=== PATIENT | female | born 1965 | race Caucasian/White ===

== ENCOUNTER 2018-10-29 11:08 | Observation (INO) ==
[2018-10-29] MEDS ORDERED: Metoprolol Tartrate 25 MG Tablet PO ONE (12:15)
[2018-10-29] MEDS ORDERED: Chlorhexidine Gluconate 2% 1 Pack (2 Cloths) TOPICAL ONE (12:15)
[2018-10-29] MEDS ORDERED: Sodium Chlor 0.9% Inj 500 ML IV.CONT ONE (12:15)
[2018-10-29] MEDS ORDERED: Bupivacaine/Epinephrine PF Inj 0.5% 10 ML Vial ONE (13:25)
[2018-10-29] MEDS ORDERED: Post-op Orders (for Pharmacy) OTHER ONE (15:59)
[2018-10-29] MEDS ORDERED: Bisacodyl 10 MG Supp RECTAL PRN (15:59)
[2018-10-29] MEDS ORDERED: Promethazine 25 MG Supp RECTAL PRN (15:59)
[2018-10-29] MEDS ORDERED: Ibuprofen 600 MG Tablet PO PRN (15:59)
[2018-10-29] MEDS ORDERED: fentaNYL Citrate Inj 100 MCG/2 ML Ampul ONE (16:16)
[2018-10-29] MEDS ORDERED: *morphine SULFATE 4 MG/ML PERIprocedure ONLY ONE ×3 (16:35→16:59)
--- NOTE | 2018-10-29 17:26 | MP ---
cc: Deven Guadalupe MD, Savitha MD DATE OF OPERATION: 10/29/2018 PREOPERATIVE DIAGNOSIS: Large thyroid goiter, right side. POSTOPERATIVE DIAGNOSIS: Large thyroid goiter, right side, pending permanent section. PROCEDURE PERFORMED: Total thyroidectomy with neuromonitoring. ANESTHESIA: General. SURGEON: Deven Guadalupe MD WHEEL BORER: Arlyn Feliciano, Advanced Registered Nurse Practitioner. Tg Feliciano LEARNING SOLUTIONS SPECIALIST/Information Manager LEARNING SOLUTIONS SPECIALIST The LEARNING SOLUTIONS SPECIALIST/Information Manager was present from beginning to the end of the case assisting in all portions of the procedure. It was necessary to have this individual in the room to assist in the above surgical procedure. The surgical procedure was assisted by the LEARNING SOLUTIONS SPECIALIST/Information Manager. The LEARNING SOLUTIONS SPECIALIST/Information Manager presence was necessary throughout the case for appropriate retraction, dissection, visualization, and resection of the important anatomical structures during the surgical procedure. The LEARNING SOLUTIONS SPECIALIST/Information Manager was assisting throughout the entirety of the operation. The skill set of the LEARNING SOLUTIONS SPECIALIST/Information Manager is medically and surgically necessary to safely complete the surgical procedure. During the surgical case the operating room surgical scrub technician was working instrument table and passing instruments to the attending surgeon and LEARNING SOLUTIONS SPECIALIST/ Information Manager. The LEARNING SOLUTIONS SPECIALIST/Information Manager was directly assisting the operating surgeon and involved in the technical aspects of the surgical case. INDICATIONS: This is a pleasant female who has a rather significant size enlarged right side of her thyroid gland. It is causing compressive symptoms and some voice changes. I believe it is compressing the trachea the esophagus and the right recurrent laryngeal nerve. Because of the size of the mass, plans were made for excision. PROCEDURE: The patient was taken to the operating room and placed in the supine position. After anesthesia, a timeout was done. The patient was prepped and draped with Betadine. I made a curvilinear incision about 8 cm, 2 cm above the sternal notch in a normal crease of the neck. Dissected the platysma muscle with electrocautery device and created a flap superiorly and inferiorly. The strap muscles are then identified. A [place] retractor was then placed. The strap muscles were retracted laterally on either side. First, we directed our attention to the left gland, which is somewhat atrophied and scarred in. We were able to get the middle thyroidal vessel down with Harmonic scalpel. The inferior thyroidal vessel and the superior thyroidal vessels are sealed with the Harmonic scalpel. A parathyroid gland is identified. It looks like a left inferior and this is preserved. Again, this gland is somewhat shrunken and atrophied and firm. Once we were able to isolate the vascular supply were able to elevate the gland up off the trachea, again visualizing the recurrent laryngeal nerve and confirming with a good waveform on the neuro monitor. The tissue was then carefully teased off the trachea up to the isthmus. The pyramidal lobe was removed as well. We then directed our attention to the right side. The gland is somewhat scarred in and adherent to the strap muscles and this must be teased away with blunt dissection and using the Harmonic scalpel. Some of the minor muscle fibers were attached to the thyroid vessel. She does have some dilated veins on the thyroid, which bleed. We were able to get the middle thyroidal vessel down with Harmonic scalpel and the inferior thyroidal vessel with the Harmonic scalpel. The superior part of the gland is very enlarged and extending up under the submandibular area. Using careful dissection of mostly blunt dissection, we were able to tease away the areolar tissue that is adherent to the thyroid. We were able to then visualize the right superior thyroidal vessels and these are ligated with the Harmonic scalpel. The gland was then teased away from the underlying tissues and elevated to the midline. We were then able to identify the recurrent laryngeal nerve on the right side with a good waveform by visualization and by the electrode neuromonitoring device. At this time, we were able to carefully teased this off the trachea. A specimen was labeled with a suture on the right gland. I believe I see the right inferior parathyroid gland on the right side. The area on both sides is then irrigated copiously. Some of the flimsy tissue that was adherent to the thyroid was oozing a little bit. This was stopped with pressure electrocautery device, but because of the amount of dissection carried out, I did place some Alan into the area of the thyroidal space. This confirmed hemostasis. Again, we reidentified the right and left recurrent laryngeal nerves with good waveform distally from the dissection as well. We then closed the midline with 2-0 Vicryl, the strap muscles. The platysma muscle was closed with 3-0 Vicryl and skin was closed with 4-0 Monocryl. Steri-Strips applied, sterile bandage was applied. The patient tolerated the procedure well with no immediate postop complication. extubated looks good fairly normal voice Deven Guadalupe MD [email or web address]/[email or web address] , 04:18 PM , 04:30 PM WILLIAM
[2018-10-29] MEDS: oxyCODONE/Acetaminophen 10/325 Tablet PO PRN ×2 (18:02→22:07)
[2018-10-29] MEDS: Senna/Docusate Sodium 8.6/50 MG Tablet PO SCH (20:42)
[2018-10-29] MEDS ORDERED: Temazepam 15 MG Capsule PO PRN (21:00)
[2018-10-30] MEDS ORDERED: Levothyroxine 50 MCG Tablet PO SCH (06:00)
[2018-10-30 08:41] VITALS: RESP 20
[2018-10-30] MEDS ORDERED: Pantoprazole Sodium 20 MG DR Tablet PO SCH (09:00)
[2018-10-30] MEDS: Senna/Docusate Sodium 8.6/50 MG Tablet PO SCH (09:43)
[2018-10-30] MEDS: oxyCODONE/Acetaminophen 10/325 Tablet PO PRN (10:51)
[2018-10-30 12:56] VITALS: BP 95/55; PULSE 55; TEMP 98.4; O2SAT 90
--- NOTE | 2018-10-30 13:46 | P.DS ---
<Tg Feliciano - Last Filed: 10/30/18 14:50> Date of admission: 10/29/18 16:08 Primary care physician: Radha Black DO Attending physician on discharge: Deven Guadalupe Anticipated date of discharge: 10/30/18 Brief History from admission: 53 year old female POD1 total thyroidectomy DS: Medications - Discharge Medications Prescriptions: oxycodone-acetaminophen 1 tab PO Q4H PRN #18 tab PRN Reason: acute post op pain exception DS: Summary Hospital Course: This is a 53 year old female POD1 total thyroidectomy. The patient's pain is controlled using oral pain medications. She was able to tolerate a soft diet. She will DC home and follow up on Nov 05. - Time Spent with Patient Total time spent providing and/or coordinating discharge services: Less than 30 minutes - Quality: VTE Deep Vein Thrombosis/Pulmonary Embolism Present on Admission: No Exam Vital signs: Vital Signs 10/29/18 16:10 10/29/18 16:25 10/29/18 16:40 Temperature 97.5 F L Pulse Rate 61 56 L 61 Respiratory Rate 20 16 20 Blood Pressure 124/62 115/58 L 118/62 Pulse Oximetry 100 100 100 10/29/18 16:55 10/29/18 17:15 10/29/18 18:17 Temperature 97.6 F 97.1 F L Pulse Rate 62 63 56 L Respiratory Rate 18 18 20 Blood Pressure 120/67 102/63 100/60 Pulse Oximetry 95 96 94 L 10/29/18 18:32 10/29/18 20:00 10/30/18 00:00 Temperature 97.8 F 97.9 F Pulse Rate 57 L 50 L Respiratory Rate 16 16 18 Blood Pressure 102/63 98/57 L Pulse Oximetry 95 93 L 10/30/18 04:00 10/30/18 08:00 10/30/18 12:00 Temperature 98 F 98.0 F 98.4 F Pulse Rate 52 L 73 55 L Respiratory Rate 16 20 20 Blood Pressure 90/55 L 92/50 L 95/55 L Pulse Oximetry 90 L 91 L 90 L Intake & Output 10/29/18 10/30/18 10/30/18 18:59 06:59 18:59 Intake Total 1700 / 1700 2160 / 2160 100 / 100 Output Total 50 / 50 Balance 1650 / 1650 2160 / 2160 100 / 100 Weight 59 kg 62.9 kg Intake: IV 1200 / 1200 100 / 100 LR 1000 mL Inj 1,000 ML @ 125 1000 / 1000 mls/hr IV.CONT .Q8H DAVID Rx#: [id number] Ofirmev Inj 1,000 mg In 100 ml 200 / 200 100 / 100 @ 400 mls/hr IV.SIG Q6H DAVID Rx# :[id number] Oral 960 / 960 Anesthesia Amount 1700 / 1700 Output: Estimated Blood Loss 50 / 50 Other: # Voids 2 Date of Last Bowel Movement 10/29/18 10/29/18 Weight On Admission 59 kg Narrative: Alert and awake Neck dressing in place--- c/d/i; no swelling; no hematoma Results Procedures completed during hospitalization: total thyroidectomy Pending studies at discharge: Pending at discharge 10/29/18 07:25 Surgical [PTH] Routine <Deven Guadalupe - Last Filed: 10/30/18 16:14> Date of admission: 10/29/18 16:08 Primary care physician: Radha Black DO DS: Summary - Time Spent with Patient Total time spent providing and/or coordinating discharge services: Exam Vital signs: Vital Signs 10/29/18 16:25 10/29/18 16:40 10/29/18 16:55 Temperature 97.6 F Pulse Rate 56 L 61 62 Respiratory Rate 16 20 18 Blood Pressure 115/58 L 118/62 120/67 Pulse Oximetry 100 100 95 10/29/18 17:15 10/29/18 18:17 10/29/18 18:32 Temperature 97.1 F L Pulse Rate 63 56 L Respiratory Rate 18 20 16 Blood Pressure 102/63 100/60 Pulse Oximetry 96 94 L 10/29/18 20:00 10/30/18 00:00 10/30/18 04:00 Temperature 97.8 F 97.9 F 98 F Pulse Rate 57 L 50 L 52 L Respiratory Rate 16 18 16 Blood Pressure 102/63 98/57 L 90/55 L Pulse Oximetry 95 93 L 90 L 10/30/18 08:00 10/30/18 12:00 Temperature 98.0 F 98.4 F Pulse Rate 73 55 L Respiratory Rate 20 20 Blood Pressure 92/50 L 95/55 L Pulse Oximetry 91 L 90 L Intake & Output 10/29/18 10/30/18 10/30/18 18:59 06:59 18:59 Intake Total 1700 / 1700 2160 / 2160 100 / 100 Output Total 50 / 50 Balance 1650 / 1650 2160 / 2160 100 / 100 Weight 59 kg 62.9 kg Intake: IV 1200 / 1200 100 / 100 LR 1000 mL Inj 1,000 ML @ 125 1000 / 1000 mls/hr IV.CONT .Q8H DAVID Rx#: [id number] Ofirmev Inj 1,000 mg In 100 ml 200 / 200 100 / 100 @ 400 mls/hr IV.SIG Q6H DAVID Rx# :[id number] Oral 960 / 960 Anesthesia Amount 1700 / 1700 Output: Estimated Blood Loss 50 / 50 Other: # Voids 2 Date of Last Bowel Movement 10/29/18 10/29/18 Weight On Admission 59 kg Narrative: Patient has fairly normal voice Ready for discharge Results Pending studies at discharge: Pending at discharge 10/29/18 07:25 Surgical [PTH] Routine Discharge Plan - Discharge Order Discharge Orders: Discharge Order (Routine); Ordered 10/30/18 Ordered By: Tg Feliciano - Discharge Details Anticipated Discharge Date: 10/30/18 Discharge Comment: rx on chart - Physicians Team Primary Care Provider: Radha Black Attending Provider: Deven Guadalupe Other Providers: [employer],Insurance - Rxs /Orders / Referrals /Forms Prescriptions: New oxycodone-acetaminophen 10-325 mg Tablet 1 tab PO Q4H PRN (Reason: acute post op pain exception ) Qty: 18 RF: 0 Continue levothyroxine 50 mcg Tablet 50 mcg PO DAILY omeprazole 20 mg Capsule,Delayed Release(Dr/Ec) 20 mg PO DAILY temazepam 15 mg Capsule 15 mg PO HS Referrals: Deven Guadalupe MD [Physician] - See Instructions (Appt set for Nov 05 at 10:45AM) Radha Black DO [Primary Care Provider] - See Instructions (Please call to schedule follow up appointment ) - Discharge Instructions Patient Printed Instructions: Oxycodone/Acetaminophen (By mouth)
--- NOTE | 2018-10-30 17:51 | ECG ---
Date Performed: 10/29/2018 Time Performed: 12:09:45 PTAGE: 53 years EKG: SINUS BRADYCARDIA BORDERLINE ECG Compared to PREVIOUS TRACING , axis is more horizontal, otherwise no significant change. PREVIOUS TRA CIN06/22/2003 12.38 DOCTOR: Jose Oneal Interpretating Date/Time 10/30/2018 17:49:43
== END 2018-10-30 15:18 | disposition home or self-care (01) ==
LOC: HSDC 11:08 → HSDI 11:08 → N07 17:51
PROVIDERS: ADMIT Surgery; ATTEND Surgery
PROC: THYROID (2018-10-29 13:53)